=== PATIENT | male | born 1995 | race Caucasian/White ===

== ENCOUNTER 2021-12-06 13:50 | Day surgery (SDC) | payer OTHER ==
[~2021-12-06] VITALS: Ht 188 cm; Wt 99.8 kg
[2021-12-06 17:43] LABS: BASOPHIL 0.2 % (0-2); BILIRUBIN NEGATIVE (NEGATIVE); BLOOD NEGATIVE Ery/uL (NEGATIVE); CLARITY CLEAR (CLEAR); COLOR YELLOW (YELLOW); EOSINOPHIL 1.1 % (0-5); GLUCOSE (U) NORMAL (NORMAL); HCT 44.5 % (42.0-52.0); HGB 15.2 g/dl (13.2-18.0); LEUKOCYTES NEGATIVE Leu/uL (NEGATIVE); LYMPHOCYTE 14.9 % (15-48); MCHC 34.2 g/dL (32.0-36.0); MCV 87.9 fL (78.0-100.0); MONOCYTE 5.4 % (0-12); MPV 10.6 fL (6.0-9.5); NITRITE NEGATIVE (NEGATIVE); NRBC 0; PLT 264 K/uL (150-400); PROTEIN NEGATIVE (NEGATIVE); RBC 5.06 M/uL (4.70-6.00); RDW 12.5 % (11.5-14.0); SPECIFIC GRAVITY 1.025 (1.001-1.030); UROBILINOGEN 0.2 mg/dL (0.2-1.0); WBC 13.3 K/uL (4.0-10.5)
[2021-12-06 18:00] LABS: ALBUMIN 4.4 g/dL (3.4-5.0); BILIRUBIN - TOTAL 0.9 mg/dL (0.2-1.0); BUN/CREAT RATIO (CALC) 13.1 RATIO; CREATININE 0.84 mg/dL (0.67-1.17); GLOBULIN (CALCULATION) 4.4 g/dL; POTASSIUM 3.2 mmol/L (3.5-5.1); TOTAL PROTEIN 8.8 g/dL (6.4-8.2)
[2021-12-06 18:49] LABS: LACTIC ACID 0.7 mmol/L (0.4-1.9)
[2021-12-06 19:54] LABS: INR 1.03 (0.9-1.2); PROTHROMBIN TIME 12.9 SECONDS (11.8-13.4)
[2021-12-06] MEDS ORDERED: NORCO 5-325 TA1 EACH PO (23:15)
== END 2021-12-07 06:47 | disposition home or self-care (01) ==
LOC: FER 13:50 → FOR 19:57 → FMS 23:35 → FOR 12-07 06:47
PROVIDERS: Emergency Medicine; Nurse Practitioner Family
DX: K35.33 Acute appendicitis with perforation, localized peritonitis, and gangrene, with abscess (principal); Z20.822 Contact with and (suspected) exposure to COVID-19
CPT/HCPCS: 36415; 80053; 81003; 82150; 83605; 83690; 84145; 85025; 85610; 87040; J1100; J1885; J2250; J2405; J2543; J2704; J2710; J3010; J7030; Q9967; U0002